=== PATIENT | male | born 1990 | race Caucasian/White ===

== ENCOUNTER 2022-03-15 23:53 | Emergency (ER) | payer SELFPAY ==
[~2022-03-15] VITALS: Ht 167.6 cm; Wt 70.3 kg
--- NOTE | 2022-03-15 23:53 | NUR ---
PREBOOK TO [facility] WITH DEJAH COBOS.
[2022-03-15 23:55] VITALS: BP 112/59
[2022-03-16] MEDS ORDERED: INSULIN REGULAR, HUMAN 100 UNIT/ML VIAL SUBQ ONE (00:10)
[2022-03-16 01:12] VITALS: BP 112/59
--- NOTE | 2022-03-16 01:12 | NUR ---
PATIENT BIB [facility]. PATIENT EXAMINED BY DR. CEBALLOS. PATIENT MEDICALLY CLEARED AND RELEASED IN CUSTODY IN STABLE CONDITION. ORIGINAL PRE-BOOK FORM GIVEN TO OFFICER JEANA.
== END 2022-03-16 01:12 ==
LOC: MED 23:53
DX: E11.65 Type 2 diabetes mellitus with hyperglycemia (principal); Z79.4 Long term (current) use of insulin; Z79.899 Other long term (current) drug therapy
CPT/HCPCS: 96372; 99283; J1815